=== PATIENT | female | born 1955 | race Caucasian/White ===

== ENCOUNTER 2023-03-02 20:11 | Observation (INO) | payer MEDICARE, OTHER ==
[~2023-03-02] VITALS: Ht 165.1 cm; Wt 135.2 kg
[~2023-03-02 20:11] MED LIST: ATORVASTATIN CA20 MG PO; CLONAZEPAM1 MG PO; CYMBALTA30 MG PO; DEPAKOTE ER250 MG PO; FLEXERIL PO; LEXAPRO10 MG PO; LYRICA50 MG PO; NAPROSYN500 MG; NEPHPLEX RX TA1 EACH PO; ONE DAILY1 EAC1 PO; OXYBUTYNIN CHLOR5 MG PO; PROPRANOLOL HCL10 MG PO; TIZANIDINE HCL4 M1 PO; TOPIRAMATE100 MG PO; TRAZODONE HCL50 MG PO; ULTRAM 50MG50 MG PO; VESICARE5 MG PO; VIT B 12; XANAX0.5 MG; ZANTAC150 MG PO; ZYRTEC10 M3 PO
[2023-03-02 20:42] LABS: BASOPHILS % 0.5 % (0.0-1.0); EOSINOPHILS # (AUTO) 0.2 (0.0-0.4); EOSINOPHILS % 2.7 % (0.0-6.0); HEMATOCRIT 42.3 % (34.2-44.1); HEMOGLOBIN 14.3 g/dL (12.0-16.0); LYMPHOCYTES # (AUTO) 2.4 (1.0-3.2); LYMPHOCYTES % 30.7 % (18.0-39.1); MEAN CORPUSCULAR HEMOGLOBIN 29.1 pg (28-32); MEAN CORPUSCULAR HGB CONC 33.8 g/dL (31-35); MEAN CORPUSCULAR VOLUME 86.2 fL (81-99); MONOCYTES # (AUTO) 0.6 (0.2-0.8); MONOCYTES % 7.2 % (4.4-11.3); NEUTROPHILS # (AUTO) 4.5 (2.1-6.9); NEUTROPHILS % 58.6 % (38.7-80.0); PLATELET COUNT 189 x10e3/uL (140-360); RED BLOOD COUNT 4.91 x10e6/uL (3.6-5.1)
[2023-03-02] MEDS ORDERED: DONNATAL/LIDOCAINE/MAALOX 30 ML SUSP PO STA (20:43)
[2023-03-02] MEDS ORDERED: BELLADONNA ALK/PHENOBARBITAL 5 ML UDC PO ONE (20:45)
[2023-03-02] MEDS ORDERED: MAGNESIUM/ALUMINUM/SIMETHICONE 30 ML UDC PO ONE (20:45)
[2023-03-02] MEDS ORDERED: LIDOCAINE VISC 2% SOLN 15 ML UDC PO ONE (20:45)
[2023-03-02 20:58] LABS: ALANINE AMINOTRANSFERASE 30 IU/L (0-55); ALBUMIN 3.7 g/dL (3.5-5.0); ALBUMIN/GLOBULIN RATIO 1.2 (0.8-2.0); ALKALINE PHOSPHATASE 61 IU/L (40-150); ANION GAP 14.6 mmol/L (8-16); BLOOD UREA NITROGEN 18 mg/dL (7-26); BUN/CREATININE RATIO 24 (6-25); CARBON DIOXIDE 23 mmol/L (22-29); CHLORIDE 105 mmol/L (98-107); CREATINE KINASE 50 IU/L (29-168); CREATININE, SERUM 0.75 mg/dL (0.57-1.11); GLUCOSE 98 mg/dL (74-118); POTASSIUM 3.6 mmol/L (3.5-5.1); SODIUM 139 mmol/L (136-145)
[2023-03-02] MEDS ORDERED: BELLADONNA ALK/PHENOBARBITAL 5 ML UDC ONE (21:08)
[2023-03-02] MEDS ORDERED: MAGNESIUM/ALUMINUM/SIMETHICONE 30 ML UDC ONE (21:09)
[2023-03-02] MEDS ORDERED: NITROGLYCERIN 2% OINT 1 GM PKT TOP STA (21:20)
[2023-03-02] MEDS ORDERED: IOPAMIDOL 370 MG/ML 100 ML INFUS..BTL INJ ONE (21:29)
[2023-03-02] MEDS ORDERED: ASPIRIN 81 MG CHEW TAB PO ONE (21:45)
[2023-03-02] MEDS ORDERED: ONDANSETRON HCL INJ 2MG/ML 2ML 2 MG/ML VIAL IV PRN (21:45)
[2023-03-02 22:17] VITALS: PULSE 69; RESP 14; O2SAT 99
[2023-03-02 23:00] LABS: AMPHETAMINES SCREEN,URINE NEGATIVE (NEGATIVE); BENZODIAZEPINES SCREEN,URINE NEGATIVE (NEGATIVE); PHENCYCLIDINE SCREEN,URINE NEGATIVE (NEGATIVE)
[2023-03-03] VITALS (12 sets, daily range): BP systolic 114–155; BP diastolic 83–96; PULSE 65–75; RESP 14–22; TEMP 97.4–98.2; O2SAT 94–100
[2023-03-03] MEDS: ACETAMINOPHEN 325 MG TAB PO PRN ×3 (02:32→20:39)
[2023-03-03] MEDS ORDERED: LYRICA100 MG PO (02:47)
[2023-03-03] MEDS ORDERED: NARATRIPTAN HCL1 MG PO (02:47)
[2023-03-03] MEDS ORDERED: OMEPRAZOLE40 MG PO (02:47)
[2023-03-03] MEDS ORDERED: OXYBUTYNIN CHLOR5 M1 PO (02:47)
[2023-03-03] MEDS ORDERED: MELOXICAM7.5 MG PO (02:47)
[2023-03-03] MEDS ORDERED: VENLAFAXINE HCL75 M1 PO (02:47)
[2023-03-03 07:35] LABS: BASOPHILS % 0.4 % (0.0-1.0); EOSINOPHILS # (AUTO) 0.2 (0.0-0.4); EOSINOPHILS % 3.1 % (0.0-6.0); HEMATOCRIT 40.7 % (34.2-44.1); HEMOGLOBIN 13.4 g/dL (12.0-16.0); LYMPHOCYTES # (AUTO) 2.1 (1.0-3.2); LYMPHOCYTES % 30.7 % (18.0-39.1); MEAN CORPUSCULAR HEMOGLOBIN 28.9 pg (28-32); MEAN CORPUSCULAR HGB CONC 32.9 g/dL (31-35); MEAN CORPUSCULAR VOLUME 87.9 fL (81-99); MONOCYTES # (AUTO) 0.6 (0.2-0.8); MONOCYTES % 8.1 % (4.4-11.3); NEUTROPHILS # (AUTO) 3.9 (2.1-6.9); NEUTROPHILS % 57.6 % (38.7-80.0); PLATELET COUNT 165 x10e3/uL (140-360); RED BLOOD COUNT 4.63 x10e6/uL (3.6-5.1)
[2023-03-03 07:59] LABS: ALBUMIN 3.4 g/dL (3.5-5.0); ALBUMIN/GLOBULIN RATIO 1.3 (0.8-2.0); ANION GAP 13.8 mmol/L (8-16); CALCIUM 8.7 mg/dL (8.4-10.2); CREATININE, SERUM 0.72 mg/dL (0.57-1.11); POTASSIUM 3.8 mmol/L (3.5-5.1)
[2023-03-03 08:18] LABS: CREATINE KINASE 46 IU/L (29-168)
[2023-03-03] MEDS ORDERED: ASPIRIN 325 MG TAB EC PO SCH (09:00)
[2023-03-03] MEDS ORDERED: HYDRALAZINE HCL 20 MG/ML VIAL IV PRN (12:45)
[2023-03-03] MEDS ORDERED: PREGABALIN 50 MG CAP PO PRN (12:45)
[2023-03-03] MEDS ORDERED: ACETAMINOPHEN/CODEINE 300MG - 30MG TAB PO PRN (12:45)
[2023-03-03] MEDS ORDERED: ONDANSETRON HCL INJ 2MG/ML 2ML 2 MG/ML VIAL IV PRN (12:45)
[2023-03-03] MEDS: MULTIVITAMINS/MINERALS TAB PO SCH (15:10)
[2023-03-03 16:05] LABS: CREATINE KINASE 57 IU/L (29-168)
[2023-03-03] MEDS ORDERED: ATORVASTATIN 20 MG TAB PO SCH (21:00)
[2023-03-04] VITALS: BP 152/97; PULSE 60; RESP 18; TEMP 97.6; O2SAT 98
[2023-03-04 00:58] VITALS: PULSE 69; RESP 16; O2SAT 96
[2023-03-04 06:22] VITALS: PULSE 71; RESP 20; O2SAT 95
[2023-03-04] MEDS ORDERED: PANTOPRAZOLE SOD 40 MG TABEC PO SCH (07:30)
[2023-03-04 07:40] VITALS: BP 124/73; PULSE 63; RESP 18; TEMP 97.9; O2SAT 94
[2023-03-04 08:15] VITALS: BP 124/73; PULSE 63; RESP 18; TEMP 97.9; O2SAT 94
[2023-03-04] MEDS: MULTIVITAMINS/MINERALS TAB PO SCH (08:19)
[2023-03-04] MEDS: ACETAMINOPHEN 325 MG TAB PO PRN (08:23)
[2023-03-04] MEDS ORDERED: OXYBUTYNIN CHLORIDE XL 5 MG TAB PO SCH (09:00)
[2023-03-04] MEDS ORDERED: VENLAFAXINE HCL 75 MG CAPCR PO SCH (09:00)
[2023-03-04 11:21] VITALS: BP 142/84; PULSE 59; RESP 19; TEMP 97.9; O2SAT 95
== END 2023-03-04 13:51 | disposition home or self-care (01) ==
LOC: ER 20:15 → ERHOLD 21:34 → MED/SURG2 23:45
PROVIDERS: ADMIT Internal Medicine; ATTEND Internal Medicine
DX: R07.89 Other chest pain (principal); K21.9 Gastro-esophageal reflux disease without esophagitis; E78.00 Pure hypercholesterolemia, unspecified; F41.8 Other specified anxiety disorders; K58.9 Irritable bowel syndrome, unspecified; Z98.84 Bariatric surgery status; Z87.891 Personal history of nicotine dependence
CPT/HCPCS: 36415 ×2; 71045; 71260; 80053 ×2; 80307; 82550 ×2; 83690; 83880; 84484 ×2; 85025 ×2; 85379; 86140; 93005; 93306; 94799 ×3; 99284; G0378 ×3; Q9967; S0164; U0002

== ENCOUNTER 2024-07-13 07:24 | Inpatient (IN) | payer MEDICARE ==
[~2024-07-13] VITALS: Ht 167.6 cm; Wt 135.2 kg
[2024-07-13] VITALS (7 sets, daily range): BP systolic 129–171; BP diastolic 69–87; PULSE 64–77; RESP 16–18; TEMP 98–98.2; O2SAT 97
[~2024-07-13 07:24] MED LIST changes: +LYRICA100 MG PO; +MELOXICAM7.5 MG PO; +NARATRIPTAN HCL1 MG PO; +OMEPRAZOLE40 MG PO; +OXYBUTYNIN CHLOR5 M1 PO; +VENLAFAXINE HCL75 M1 PO
[2024-07-13 08:42] LABS: BILIRUBIN,URINE NEGATIVE (NEGATIVE); CLARITY,URINE SL CLOUDY (CLEAR); COLOR,URINE YELLOW (YELLOW); GLUCOSE, URINE NEGATIVE (NEGATIVE); KETONES,URINE 2+ (NEGATIVE); LEUKOCYTE ESTERASE ,URINE TRACE (NEGATIVE); NITRITE,URINE NEGATIVE (NEGATIVE); PH,URINE 6 (5 - 7); PROTEIN,URINE DIPSTICK 2+ (NEGATIVE); URINE UROBILINOGEN 0.2 mg/dL (0.2 - 1)
[2024-07-13 08:58] LABS: BACTERIA,URINE MODERATE /HPF; CALCIUM OXALATE CRYSTALS,UR MANY (FEW); EPITHELIAL CELLS,URINE RARE /LPF; RBC,URINE 0-5 /HPF (0-5)
[2024-07-13 09:21] LABS: BASOPHILS % 0.3 % (0.0-1.0); EOSINOPHILS # (AUTO) 0.1 (0.0-0.4); EOSINOPHILS % 0.5 % (0.0-6.0); HEMATOCRIT 40.9 % (34.2-44.1); HEMOGLOBIN 13.1 g/dL (12.0-16.0); LYMPHOCYTES # (AUTO) 1.4 (1.0-3.2); LYMPHOCYTES % 13.2 % (18.0-39.1); MEAN CORPUSCULAR HEMOGLOBIN 28.4 pg (28-32); MEAN CORPUSCULAR VOLUME 88.7 fL (81-99); MONOCYTES # (AUTO) 0.4 (0.2-0.8); MONOCYTES % 3.4 % (4.4-11.3); NEUTROPHILS # (AUTO) 8.5 (2.1-6.9); NEUTROPHILS % 82.3 % (38.7-80.0); PLATELET COUNT 214 x10e3/uL (140-360); RED BLOOD COUNT 4.61 x10e6/uL (3.6-5.1); RED CELL DISTRIBUTION WIDTH 12.8 % (11.7-14.4); WHITE BLOOD COUNT 10.26 x10e3/uL (4.8-10.8)
[2024-07-13 09:41] LABS: ALBUMIN 3.8 g/dL (3.5-5.0); ALBUMIN/GLOBULIN RATIO 1.2 (0.8-2.0); ANION GAP 15.1 mmol/L (8-16); BILIRUBIN,TOTAL 0.5 mg/dL (0.2-1.2); CALCIUM 9.2 mg/dL (8.4-10.2); CREATININE, SERUM 0.89 mg/dL (0.57-1.11); POTASSIUM 3.1 mmol/L (3.5-5.1)
[2024-07-13] MEDS: SODIUM CHLORIDE 0.9% 1000ML 1,000 ML IV SCH ×2 (09:48→11:33)
[2024-07-13] MEDS: ONDANSETRON HCL INJ 2MG/ML 2ML 2 MG/ML VIAL IV STA (09:48)
[2024-07-13] MEDS: FENTANYL CITRATE/PF 100MCG/2 ML INJ IV ONE (09:49)
[2024-07-13] MEDS: FENTANYL CITRATE/PF 100MCG/2 ML INJ IV STA (11:32)
[2024-07-13] MEDS: KETOROLAC TROMETHAMINE 30 MG/ML VIAL IV ONE (11:33)
[2024-07-13] MEDS: ONDANSETRON HCL INJ 2MG/ML 2ML 2 MG/ML VIAL IV PRN (15:57)
[2024-07-13] MEDS: HYDRALAZINE HCL 20 MG/ML VIAL IV PRN (15:59)
[2024-07-13] MEDS ORDERED: CLONIDINE HCL 0.1 MG TAB PO PRN (17:30)
[2024-07-13] MEDS: TRAMADOL HCL 50 MG TAB PO PRN (18:25)
[2024-07-13] MEDS: ATORVASTATIN 20 MG TAB PO SCH (21:03)
[2024-07-13] MEDS: ACETAMINOPHEN 325 MG TAB PO PRN (23:23)
[2024-07-14] VITALS (9 sets, daily range): BP systolic 119–162; BP diastolic 61–88; PULSE 57–75; RESP 18–21; TEMP 97.5–99.1; O2SAT 95–100
[2024-07-14 06:52] LABS: BASOPHILS % 0.4 % (0.0-1.0); EOSINOPHILS # (AUTO) 0.1 (0.0-0.4); EOSINOPHILS % 2.5 % (0.0-6.0); HEMATOCRIT 35.4 % (34.2-44.1); HEMOGLOBIN 11.3 g/dL (12.0-16.0); LYMPHOCYTES # (AUTO) 1.7 (1.0-3.2); LYMPHOCYTES % 33.1 % (18.0-39.1); MEAN CORPUSCULAR HEMOGLOBIN 28.8 pg (28-32); MEAN CORPUSCULAR HGB CONC 31.9 g/dL (31-35); MEAN CORPUSCULAR VOLUME 90.1 fL (81-99); MONOCYTES # (AUTO) 0.5 (0.2-0.8); MONOCYTES % 10.3 % (4.4-11.3); NEUTROPHILS # (AUTO) 2.8 (2.1-6.9); NEUTROPHILS % 53.3 % (38.7-80.0); PLATELET COUNT 171 x10e3/uL (140-360); RED BLOOD COUNT 3.93 x10e6/uL (3.6-5.1); RED CELL DISTRIBUTION WIDTH 13.1 % (11.7-14.4); WHITE BLOOD COUNT 5.26 x10e3/uL (4.8-10.8)
[2024-07-14 07:08] LABS: ANION GAP 11.8 mmol/L (8-16); CALCIUM 8.6 mg/dL (8.4-10.2); CREATININE, SERUM 0.77 mg/dL (0.57-1.11)
[2024-07-14 07:12] LABS: POTASSIUM 2.8 mmol/L (3.5-5.1)
[2024-07-14] MEDS: POTASSIUM CHLORIDE 20MEQ/100ML 200 ML IV ONE (08:51)
[2024-07-14] MEDS: PANTOPRAZOLE SOD 40 MG TABEC PO SCH (09:00)
[2024-07-14] MEDS: OXYBUTYNIN CHLORIDE XL 5 MG TAB PO SCH (09:00)
[2024-07-14] MEDS: VENLAFAXINE HCL 75 MG CAPCR PO SCH (09:00)
[2024-07-14] MEDS: KETOROLAC TROMETHAMINE 30 MG/ML VIAL IV ONE (12:59)
[2024-07-14] MEDS: Vancomycin IV 1 GM in SODIUM CHLORIDE 0.9% 250ML 250 ML IV ONE (13:16)
[2024-07-15] VITALS: BP 149/85; PULSE 56; RESP 17; TEMP 97.5; O2SAT 97
[2024-07-15 04:00] VITALS: BP 148/71; PULSE 60; RESP 18; TEMP 98.3; O2SAT 96
[2024-07-15 06:33] LABS: BASOPHILS % 0.4 % (0.0-1.0); EOSINOPHILS # (AUTO) 0.3 (0.0-0.4); EOSINOPHILS % 5.4 % (0.0-6.0); HEMATOCRIT 33.7 % (34.2-44.1); LYMPHOCYTES # (AUTO) 1.5 (1.0-3.2); LYMPHOCYTES % 32.7 % (18.0-39.1); MEAN CORPUSCULAR HEMOGLOBIN 28.9 pg (28-32); MEAN CORPUSCULAR HGB CONC 32.6 g/dL (31-35); MEAN CORPUSCULAR VOLUME 88.5 fL (81-99); MONOCYTES # (AUTO) 0.4 (0.2-0.8); MONOCYTES % 9.2 % (4.4-11.3); NEUTROPHILS # (AUTO) 2.4 (2.1-6.9); NEUTROPHILS % 51.9 % (38.7-80.0); PLATELET COUNT 164 x10e3/uL (140-360); RED BLOOD COUNT 3.81 x10e6/uL (3.6-5.1); RED CELL DISTRIBUTION WIDTH 13.2 % (11.7-14.4); WHITE BLOOD COUNT 4.59 x10e3/uL (4.8-10.8)
[2024-07-15 07:01] LABS: ANION GAP 12.1 mmol/L (8-16); CALCIUM 8.7 mg/dL (8.4-10.2); CREATININE, SERUM 0.67 mg/dL (0.57-1.11)
[2024-07-15] MEDS ORDERED: IOPAMIDOL 610MG/1ML 300 MG/ML VIAL IV ONE (07:02)
[2024-07-15 07:04] LABS: POTASSIUM 3.1 mmol/L (3.5-5.1)
[2024-07-15] MEDS: FENTANYL CITRATE/PF 100MCG/2 ML INJ ONE (09:38)
[2024-07-15 10:16] VITALS: BP 164/88; PULSE 55; RESP 20; TEMP 97.6; O2SAT 100
[2024-07-15 11:05] VITALS: BP 164/88; PULSE 55; RESP 20; TEMP 97.6; O2SAT 100
[2024-07-15 15:35] VITALS: BP 177/78; PULSE 63; RESP 20; TEMP 97.8; O2SAT 95
[2024-07-15 20:00] VITALS: BP 177/78; PULSE 63; RESP 20; TEMP 97.8; O2SAT 95
[2024-07-16] MEDS ORDERED: LIDOCAINE HCL 2% LOCAL INJ 5 ML SDV VIAL INJ ONE (00:17)
[2024-07-16] MEDS ORDERED: ONDANSETRON HCL INJ 2MG/ML 2ML 2 MG/ML VIAL ONE (00:17)
[2024-07-16] MEDS ORDERED: FENTANYL CITRATE/PF 100MCG/2 ML INJ ONE (00:17)
[2024-07-16] MEDS ORDERED: MIDAZOLAM HCL 2 MG/2 ML VIAL ONE (00:17)
[2024-07-16] MEDS ORDERED: PROPOFOL IV EMULSION 10 MG/ML 20 ML VIAL ONE (00:17)
[2024-07-16] MEDS ORDERED: KETOROLAC TROMETHAMINE 30 MG/ML VIAL ONE (00:56)
[2024-07-16 01:54] VITALS: BP 136/68; PULSE 55; RESP 17; TEMP 97.2; O2SAT 98
[2024-07-16 05:18] VITALS: BP 147/83; PULSE 59; RESP 18; TEMP 98.4; O2SAT 100
[2024-07-16 07:04] LABS: BASOPHILS % 0.6 % (0.0-1.0); EOSINOPHILS # (AUTO) 0.2 (0.0-0.4); EOSINOPHILS % 4.9 % (0.0-6.0); HEMATOCRIT 34.9 % (34.2-44.1); HEMOGLOBIN 10.9 g/dL (12.0-16.0); LYMPHOCYTES # (AUTO) 1.3 (1.0-3.2); LYMPHOCYTES % 27.2 % (18.0-39.1); MEAN CORPUSCULAR HEMOGLOBIN 28.5 pg (28-32); MEAN CORPUSCULAR HGB CONC 31.2 g/dL (31-35); MEAN CORPUSCULAR VOLUME 91.4 fL (81-99); MONOCYTES # (AUTO) 0.4 (0.2-0.8); MONOCYTES % 7.9 % (4.4-11.3); NEUTROPHILS # (AUTO) 2.9 (2.1-6.9); NEUTROPHILS % 59.2 % (38.7-80.0); PLATELET COUNT 150 x10e3/uL (140-360); RED BLOOD COUNT 3.82 x10e6/uL (3.6-5.1); RED CELL DISTRIBUTION WIDTH 13.1 % (11.7-14.4); WHITE BLOOD COUNT 4.93 x10e3/uL (4.8-10.8)
[2024-07-16 07:31] LABS: ANION GAP 9.3 mmol/L (8-16); CALCIUM 8.5 mg/dL (8.4-10.2); CREATININE, SERUM 0.66 mg/dL (0.57-1.11)
[2024-07-16 07:33] LABS: POTASSIUM 3.3 mmol/L (3.5-5.1)
[2024-07-16 08:00] VITALS: BP 161/85; PULSE 57; RESP 20; TEMP 98.3; O2SAT 98
[2024-07-16 08:45] VITALS: BP 161/85; PULSE 57; RESP 20; TEMP 98.3; O2SAT 98
[2024-07-16] MEDS: SOLIFENACIN SUCCINATE 5 MG TAB PO SCH (09:35)
[2024-07-16] MEDS: PHENAZOPYRIDINE HCL 100 MG TAB PO PRN (09:36)
[2024-07-16] MEDS: POTASSIUM CHLORIDE 10MEQ EA PO PRN (11:51)
[2024-07-16 12:00] VITALS: BP 168/84; PULSE 58; RESP 21; TEMP 98.6; O2SAT 97
[2024-07-16 14:15] LABS: CALCIUM 8.1 mg/dL (8.7-10.3)
[2024-07-16 16:00] VITALS: BP 154/89; PULSE 73; RESP 21; TEMP 98; O2SAT 97
[2024-07-16] MEDS ORDERED: ONDANSETRON HCL 4 MG ORAL DISINTEGRATING TAB PO PRN (17:00)
== END 2024-07-16 16:25 | disposition home or self-care (01) | DRG 694 ==
LOC: ER 07:31 → ERHOLD 10:22 → MED/SURG3 14:55
PROVIDERS: ADMIT Internal Medicine; ATTEND Internal Medicine
PROC: BT141ZZ Fluoroscopy of Kidneys, Ureters and Bladder using Low Osmolar Contrast (ICD-10-PCS; 2024-07-15)
PROC: 0UJH7ZZ Inspection of Vagina and Cul-de-sac, Via Natural or Artificial Opening (ICD-10-PCS; 2024-07-15)
PROC: 0TC68ZZ Extirpation of Matter from Right Ureter, Via Natural or Artificial Opening Endoscopic (ICD-10-PCS; principal; 2024-07-15 08:35)
DX: N13.2 Hydronephrosis with renal and ureteral calculous obstruction (principal); Z68.42 Body mass index [BMI] 45.0-49.9, adult; N36.41 Hypermobility of urethra; N81.2 Incomplete uterovaginal prolapse; N95.2 Postmenopausal atrophic vaginitis; E66.01 Morbid (severe) obesity due to excess calories; I10 Essential (primary) hypertension; F41.8 Other specified anxiety disorders; E87.6 Hypokalemia; E78.00 Pure hypercholesterolemia, unspecified; K21.9 Gastro-esophageal reflux disease without esophagitis; Z79.899 Other long term (current) drug therapy
CPT/HCPCS: 36415; 74176; 74420; 80048; 80053; 81001; 83735; 83970; 84550; 85025; 87040; 87071; 87086; 87205; 88300; 94799; 99252; 99284; C1758; C1769; C2617; J0360; J0696; J1885; J2003; J2250; J2405; J3480; J7030; J7050

== ENCOUNTER 2024-08-12 19:22 | Inpatient (IN) | payer MEDICARE ==
[~2024-08-12] VITALS: Ht 160 cm; Wt 81.8 kg
[2024-08-12 19:38] VITALS: PULSE 72; RESP 20; TEMP 97.8
[2024-08-12 20:14] LABS: BASOPHILS % 0.5 % (0.0-1.0); EOSINOPHILS # (AUTO) 0.4 (0.0-0.4); EOSINOPHILS % 6.3 % (0.0-6.0); HEMATOCRIT 40.8 % (34.2-44.1); HEMOGLOBIN 12.7 g/dL (12.0-16.0); LYMPHOCYTES # (AUTO) 1.7 (1.0-3.2); LYMPHOCYTES % 29.2 % (18.0-39.1); MEAN CORPUSCULAR HEMOGLOBIN 28.2 pg (28-32); MEAN CORPUSCULAR HGB CONC 31.1 g/dL (31-35); MEAN CORPUSCULAR VOLUME 90.7 fL (81-99); MONOCYTES # (AUTO) 0.4 (0.2-0.8); MONOCYTES % 6.4 % (4.4-11.3); NEUTROPHILS # (AUTO) 3.3 (2.1-6.9); NEUTROPHILS % 57.4 % (38.7-80.0); PLATELET COUNT 167 x10e3/uL (140-360); RED CELL DISTRIBUTION WIDTH 13.6 % (11.7-14.4); WHITE BLOOD COUNT 5.76 x10e3/uL (4.8-10.8)
[2024-08-12 20:28] LABS: ALBUMIN 3.7 g/dL (3.5-5.0); ALBUMIN/GLOBULIN RATIO 1.3 (0.8-2.0); ANION GAP 12.4 mmol/L (8-16); BILIRUBIN,TOTAL 0.3 mg/dL (0.2-1.2); CALCIUM 8.7 mg/dL (8.4-10.2); CREATININE, SERUM 0.74 mg/dL (0.57-1.11); TOTAL PROTEIN 6.6 g/dL (6.5-8.1)
[2024-08-12 20:31] LABS: POTASSIUM 3.4 mmol/L (3.5-5.1)
[2024-08-12 20:37] VITALS: BP 151/78; PULSE 69; RESP 18; TEMP 98; O2SAT 100
[2024-08-12] MEDS: ONDANSETRON HCL INJ 2MG/ML 2ML 2 MG/ML VIAL IV PRN (21:58)
[2024-08-12] MEDS: KETOROLAC TROMETHAMINE 30 MG/ML VIAL IV PRN (21:58)
[2024-08-12] MEDS: SODIUM CHLORIDE 0.9% 1000ML 1,000 ML IV SCH (21:59)
[2024-08-12] MEDS: CIPROFLOXACIN 400 MG/D5W 200ML 200 ML IV STA (21:59)
[2024-08-12 23:27] VITALS: BP 151/78; PULSE 68; RESP 18; TEMP 97.8; O2SAT 100
[2024-08-12 23:30] VITALS: BP 151/78; PULSE 71; RESP 18; TEMP 98.7; O2SAT 100
[2024-08-13] VITALS: BP 153/91; PULSE 78; RESP 20; TEMP 98.2; O2SAT 98
[2024-08-13] MEDS ORDERED: LAMOTRIGINE100 MG PO (00:06)
[2024-08-13] MEDS ORDERED: CLONIDINE HCL0.1 MG PO (00:06)
[2024-08-13] MEDS ORDERED: POTASSIUM CHLO20 ME1 PO (00:06)
[2024-08-13 04:00] VITALS: BP 136/75; PULSE 72; RESP 20; TEMP 97.8; O2SAT 99
[2024-08-13 05:41] LABS: BASOPHILS % 0.5 % (0.0-1.0); EOSINOPHILS # (AUTO) 0.3 (0.0-0.4); EOSINOPHILS % 6.1 % (0.0-6.0); HEMATOCRIT 34.6 % (34.2-44.1); HEMOGLOBIN 10.8 g/dL (12.0-16.0); LYMPHOCYTES # (AUTO) 1.6 (1.0-3.2); LYMPHOCYTES % 28.1 % (18.0-39.1); MEAN CORPUSCULAR HEMOGLOBIN 28.3 pg (28-32); MEAN CORPUSCULAR HGB CONC 31.2 g/dL (31-35); MEAN CORPUSCULAR VOLUME 90.6 fL (81-99); MONOCYTES # (AUTO) 0.4 (0.2-0.8); MONOCYTES % 7.2 % (4.4-11.3); NEUTROPHILS # (AUTO) 3.2 (2.1-6.9); NEUTROPHILS % 57.9 % (38.7-80.0); PLATELET COUNT 141 x10e3/uL (140-360); RED BLOOD COUNT 3.82 x10e6/uL (3.6-5.1); RED CELL DISTRIBUTION WIDTH 13.4 % (11.7-14.4); WHITE BLOOD COUNT 5.58 x10e3/uL (4.8-10.8)
[2024-08-13 06:15] LABS: ALBUMIN 2.8 g/dL (3.5-5.0); ALBUMIN/GLOBULIN RATIO 1.3 (0.8-2.0); ANION GAP 10.9 mmol/L (8-16); BILIRUBIN,TOTAL 0.3 mg/dL (0.2-1.2); CREATININE, SERUM 0.66 mg/dL (0.57-1.11)
[2024-08-13 06:19] LABS: POTASSIUM 2.9 mmol/L (3.5-5.1)
[2024-08-13] MEDS: POTASSIUM CHLORIDE 20MEQ/100ML 100 ML IV ONE ×2 (06:56→08:52)
[2024-08-13 08:00] VITALS: BP 136/75; PULSE 72; RESP 20; TEMP 97.8; O2SAT 99
[2024-08-13 08:55] VITALS: BP 147/63; PULSE 58; RESP 18; TEMP 98.1; O2SAT 98
[2024-08-13] MEDS ORDERED: ONDANSETRON HCL INJ 2MG/ML 2ML 2 MG/ML VIAL IV PRN (11:00)
[2024-08-13] MEDS ORDERED: ACETAMINOPHEN 325 MG TAB PO PRN (11:00)
[2024-08-13] MEDS ORDERED: PREGABALIN 50 MG CAP PO PRN (11:00)
[2024-08-13] MEDS: LEVOFLOXACIN 500MG/D5W 100ML 100 ML IV SCH (11:53)
[2024-08-13] MEDS: SOLIFENACIN SUCCINATE 5 MG TAB PO SCH (11:53)
[2024-08-13] MEDS: LAMOTRIGINE 25 MG TAB PO SCH (11:54)
[2024-08-13] MEDS: PANTOPRAZOLE SOD 40 MG TABEC PO SCH (11:54)
[2024-08-13 12:02] VITALS: BP 138/77; PULSE 60; RESP 18; TEMP 97.7; O2SAT 96
[2024-08-13] MEDS ORDERED: PROPOFOL IV EMULSION 10 MG/ML 20 ML VIAL ONE (15:05)
[2024-08-13] MEDS ORDERED: MIDAZOLAM HCL 2 MG/2 ML VIAL ONE (15:05)
[2024-08-13] MEDS ORDERED: ONDANSETRON HCL INJ 2MG/ML 2ML 2 MG/ML VIAL ONE (15:05)
[2024-08-13] MEDS ORDERED: FENTANYL CITRATE/PF 100MCG/2 ML INJ ONE (15:05)
[2024-08-13] MEDS ORDERED: LIDOCAINE HCL 2% LOCAL INJ 5 ML SDV VIAL INJ ONE (15:05)
[2024-08-13] MEDS: TRAMADOL HCL 50 MG TAB PO PRN (18:03)
[2024-08-13 20:00] VITALS: BP 162/94; PULSE 61; RESP 18; TEMP 97.7; O2SAT 100
[2024-08-13] MEDS: CLONIDINE HCL 0.1 MG TAB PO SCH (21:48)
[2024-08-13] MEDS: ATORVASTATIN 20 MG TAB PO SCH (21:48)
[2024-08-14] VITALS (8 sets, daily range): BP systolic 117–130; BP diastolic 60–78; PULSE 60–75; RESP 17–20; TEMP 97.6–98; O2SAT 95–99
[2024-08-14 05:41] LABS: BASOPHILS % 0.7 % (0.0-1.0); EOSINOPHILS # (AUTO) 0.4 (0.0-0.4); EOSINOPHILS % 9.1 % (0.0-6.0); HEMATOCRIT 34.4 % (34.2-44.1); HEMOGLOBIN 10.7 g/dL (12.0-16.0); LYMPHOCYTES # (AUTO) 1.5 (1.0-3.2); LYMPHOCYTES % 35.4 % (18.0-39.1); MEAN CORPUSCULAR HEMOGLOBIN 28.5 pg (28-32); MEAN CORPUSCULAR HGB CONC 31.1 g/dL (31-35); MEAN CORPUSCULAR VOLUME 91.7 fL (81-99); MONOCYTES # (AUTO) 0.3 (0.2-0.8); MONOCYTES % 7.9 % (4.4-11.3); NEUTROPHILS % 46.7 % (38.7-80.0); PLATELET COUNT 134 x10e3/uL (140-360); RED BLOOD COUNT 3.75 x10e6/uL (3.6-5.1); RED CELL DISTRIBUTION WIDTH 13.5 % (11.7-14.4); WHITE BLOOD COUNT 4.29 x10e3/uL (4.8-10.8)
[2024-08-14 06:03] LABS: ANION GAP 10.3 mmol/L (8-16); CREATININE, SERUM 0.72 mg/dL (0.57-1.11)
[2024-08-14 06:04] LABS: POTASSIUM 3.3 mmol/L (3.5-5.1)
[2024-08-14] MEDS: MULTIVITAMIN PO SCH (08:44)
[2024-08-14] MEDS: POTASSIUM CHLORIDE 20 MEQ TAB CR PO SCH (08:44)
[2024-08-14] MEDS ORDERED: OXYBUTYNIN CHLORIDE XL 5 MG TAB PO SCH (09:00)
[2024-08-14] MEDS ORDERED: VENLAFAXINE HCL 75 MG CAPCR PO SCH (09:00)
[2024-08-15] VITALS: BP 141/82; PULSE 96; RESP 19; TEMP 97.7; O2SAT 98
[2024-08-15 04:00] VITALS: BP 127/66; PULSE 56; RESP 18; TEMP 97.7; O2SAT 99
[2024-08-15 08:40] VITALS: BP 115/68; PULSE 51; RESP 19; TEMP 98.5; O2SAT 98
[2024-08-15 09:32] VITALS: BP 115/68; PULSE 51; RESP 19; TEMP 98.5; O2SAT 98
[2024-08-15] MEDS: PHENAZOPYRIDINE HCL 100 MG TAB PO PRN (11:08)
[2024-08-15 12:31] VITALS: BP 149/87; PULSE 56; RESP 19; TEMP 97.8; O2SAT 100
[2024-08-15 16:51] VITALS: BP 153/70; PULSE 70; RESP 20; TEMP 97.8; O2SAT 100
[2024-08-15] MEDS ORDERED: ONDANSETRON HCL 4 MG ORAL DISINTEGRATING TAB PO PRN (19:45)
== END 2024-08-15 20:09 | disposition home or self-care (01) | DRG 700 ==
LOC: ER 19:28 → ERHOLD 19:31 → MED/SURG2 21:22
PROVIDERS: ADMIT Internal Medicine; ATTEND Internal Medicine
PROC: BT161ZZ Fluoroscopy of Right Ureter using Low Osmolar Contrast (ICD-10-PCS; 2024-08-13)
PROC: 0TP98DZ Removal of Intraluminal Device from Ureter, Via Natural or Artificial Opening Endoscopic (ICD-10-PCS; principal; 2024-08-13 16:13)
PROC: 0UJH7ZZ Inspection of Vagina and Cul-de-sac, Via Natural or Artificial Opening (ICD-10-PCS; 2024-08-13 16:13)
DX: T83.84XA Pain due to genitourinary prosthetic devices, implants and grafts, initial encounter (principal); D64.9 Anemia, unspecified; I10 Essential (primary) hypertension; E78.00 Pure hypercholesterolemia, unspecified; E87.6 Hypokalemia; K21.9 Gastro-esophageal reflux disease without esophagitis; N23 Unspecified renal colic; R32 Unspecified urinary incontinence; R31.9 Hematuria, unspecified; F41.9 Anxiety disorder, unspecified; F32.A Depression, unspecified; Z96.0 Presence of urogenital implants; Y83.1 Surgical operation with implant of artificial internal device as the cause of abnormal reaction of the patient, or of later complication, without mention of misadventure at the time of the procedure; E66.9 Obesity, unspecified; Z68.32 Body mass index [BMI] 32.0-32.9, adult; Z87.442 Personal history of urinary calculi; Z90.49 Acquired absence of other specified parts of digestive tract; Z98.84 Bariatric surgery status; Z88.1 Allergy status to other antibiotic agents; Z88.0 Allergy status to penicillin; Z88.7 Allergy status to serum and vaccine; Z88.2 Allergy status to sulfonamides; Z88.6 Allergy status to analgesic agent; Z88.5 Allergy status to narcotic agent; Z91.048 Other nonmedicinal substance allergy status; Z91.014 Allergy to mammalian meats; Z91.010 Allergy to peanuts; Z91.018 Allergy to other foods
CPT/HCPCS: 36415; 74018; 74420; 80048; 80053; 84132; 85025; 87086; 99284; C1769; J1885; J1956; J2003; J2250; J2405; J3480; J7030